=== PATIENT | female | born 1980 | race Caucasian/White ===

== ENCOUNTER 2019-05-04 19:05 | Emergency (ER) | payer BC, OTHER ==
[2019-05-04 20:12] VITALS: BP 112/71
[2019-05-04 20:32] LABS: Influenza A Molecular POSITIVE (Negative)
--- NOTE | 2019-05-04 20:38 | UC ---
FLU HPI - HPI Summary HPI Summary: Patient is a 39-year-old female presents to urgent care with 3-4 days of body aches, cough, sinus congestion, ear fullness. Patient states sometimes with coughing she gags and vomits. Mild nausea. No documented fever. No rash. No diarrhea. Patient did not get the flu vaccine this year she is highly allergic to it. Patient does smoke cigarettes. Patient denies feeling short of breath. Patient's was diagnosed with influenza today. Patient's medications is entered in the EMR reviewed this visit. Patient to take 2 days of amoxicillin she had left over thinking this could be a sinus infection. Patient has taken several [id number] medications to help with cough but none seem to help. Pt does have a history of Crohn's disease - History of Current Complaint Chief Complaint: UCRespiratory Stated Complaint: FLU LIKE SYMPTOMS Time Seen by Provider: 05/04/19 20:29 Hx Obtained From: Patient Hx Last Menstrual Period: 04/19/19 Onset/Duration: Gradual Onset Severity Currently: Moderate Severity Initially: Moderate Pain Intensity: 7 - Allergy/Home Medications Allergies/Adverse Reactions: Allergies Allergy/AdvReac Type Severity Reaction Status Date / Time BEES Allergy Severe Anaphylatic Uncoded 05/04/19 20:15 Shock novacain Allergy Severe Anaphylatic Uncoded 05/04/19 20:15 Shock HAYFEVER Allergy ITCHY Uncoded 05/04/19 20:15 EYES, RUNNY NOSE Home Medications: Home Medications Hyoscyamine Sulfate [Levsin] 0.125 mg PO TID 06/08/14 [History Confirmed ] Omeprazole CAP (NF) [PriLOSEC CAP*] 20 mg PO BID 06/08/14 [History Confirmed ] Ondansetron TAB* [Zofran Tab*] 4 mg PO Q6H PRN 06/08/14 [History Confirmed 05/04] Cholecalciferol [Vitamin D3] 10,000 unit PO QAM 08/10/14 [History Confirmed ] EPINEPHrine [Epipen 2-Brayden] 0.3 mg INJ DAILY PRN 08/10/14 [History Confirmed ] Multivitamin [Multivitamins] 1 cap PO QAM 08/10/14 [History Confirmed 05/04/19] Vitamin B Complex CAP* [B Complex CAP*] 1 cap PO QAM 08/10/14 [History Confirmed 05/04/19] Benzonatate CAP* [Tessalon 100 MG CAP*] 100 mg PO TID PRN #15 cap 05/04/19 [Rx] Oseltamivir Phosphate [Tamiflu] 75 mg PO BID #9 capsule 05/04/19 [Rx] PMH/Surg Hx/FS Hx/Imm Hx Previously Healthy: Yes - Surgical History Surgical History: Yes Surgery Procedure, Year, and Place: 07/23/2000 WITH REPAIR OF UTERUS FROM LARGE BABY THAT WAS BREECH, AND BILATERAL TUBAL LIGATION, [place] [facility]. APPENDECTOMY 1998. [facility]. 2001 ABDOMINAL HERNIA REPAIR WITH MESH with revisions,NASREEN PELAEZ. MULTIPLE HERNIA REPAIRS WITH MESH APPLIED,. 2007 LAPAROSCOPIC CHOLECYSTECTOMY, [place]. 2008 UMBILICAL HERNIA REPAIR WITH KEGAL MESH, [place]. 01/2013 ENDOSCOPY/COLONOSCOPY, [facility]. 2013 ANAL FISTUALOTOMY, [place]. 08/16/14 abdominal mesh removal [facility] [place] debridement & abdominal mesh removal [facility] [place]. 12/26/14 abdominal wound repair [facility]. 11/21/15 hernia repair x4, 3in of small intestine removed, & new mesh applied [facility] - Family History Known Family History: Positive: Non-Contributory Negative: Respiratory Disease - Social History Occupation: Employed Full-time Lives: With Family Alcohol Use: Rare Substance Use Type: None Smoking Status (MU): Light Every Day Tobacco Smoker Type: Cigarettes Amount Used/How Often: 1/2 ppd Length of Time of Smoking/Using Tobacco: 15 yrs Have You Smoked in the Last Year: Yes When Did the Patient Quit Smoking/Using Tobacco: NONE SINCE Wed08/08/2014 Household Exposure Type: Cigarettes - Immunization History Most Recent Influenza Vaccination: NONE Most Recent Tetanus Shot: 2000 Most Recent Pneumonia Vaccination: NONE Review of Systems All Other Systems Reviewed And Are Negative: Yes Constitutional: Positive: Fatigue ENT: Positive: Sore Throat, Ear Ache, Nasal Discharge, Sinus Congestion, Sinus Pain/Tenderness Respiratory: Positive: Cough Cardiovascular: Positive: Negative Gastrointestinal: Positive: Vomiting - Posttussive, Nausea Physical Exam - Summary Physical Exam Summary: Vital Signs Reviewed: Yes A+Ox3, congested, tired Eyes: Conjunctiva Clear, CRYSTAL. EOM intact and full ENT: Hearing grossly normal TM x 2 clear, turbinates inflammed and boggy, + PND , mmoist, uvula midline, no exudate, no erythema Neck: Positive: Supple Respiratory: Positive: No respiratory distress, No accessory muscle use + mild exp wheeze, + cough speaking full,easy sentences Cardiovascular: RRR nl s1, s2 no m/r CBT <2 sec abd soft + BS nt/nd no guarding, no distension Musculoskeletal Exam: [place] x 4 without difficulty Strength Intact, ROM Intact Neurological: Positive: Alert, + sensation throughout Psychological: Positive: Normal Response To examiner Skin: Positive: no rash, no ecchymosis Vital Signs: Initial Vital Signs Temp 98.9 F 05/04/19 20:03 Pulse 95 05/04/19 20:03 Resp 18 05/04/19 20:03 BP 112/71 05/04/19 20:03 Pulse Ox 100 05/04/19 20:03 Flu Course/Dx - Course Course Of Treatment: Patient presents to urgent care reporting 3-4 days of progressive bodyaches, congestion, sore throat, cough. Patient has had posttussive emesis. On exam vital signs are stable. Patient does have sinus congestion postnasal drip and mild primary wheezing. Patient's influenza is positive. Given patient's diagnosis of Crohn's disease will start patient on Tamiflu. Recommend humidified air. Secretion precaution. We'll prescribe Tessalon Perles this patient states this has helped her past. Patient comfortable in agreement with plan. Return percussion discussed. Secretion precautions discussed. - Differential Dx/Diagnosis Provider Diagnosis: Influenza A Discharge ED - Sign-Out/Discharge Documenting (check all that apply): Patient Departure All imaging exams completed and their final reports reviewed: No Studies - Discharge Plan Condition: Stable Disposition: HOME Prescriptions: Benzonatate CAP* [Tessalon 100 MG CAP*] 100 mg PO TID PRN #15 cap PRN Reason: Cough Oseltamivir Phosphate [Tamiflu] 75 mg PO BID #9 capsule Patient Education Materials: Influenza (DC) Forms: *Work Release Referrals: Khanh LIND,Katherine Hoover [Primary Care Provider] - Additional Instructions: - Stay well hydrated. Drink plenty of non-alcoholic, non-caffinated beverages. - Take Tamiflu as prescribed - Alternate ibuprofen (Advil, Motrin) 600mg and Tylenol 1000mg every 3 hours for pain or fever. Take with food. Do NOT take for more than 4-5 days. - These infections are spread by secretions - do NOT share eating or drinking utensils - clean items you share with other people such as cell phones, computer mouse, TV remote, computer tablets,etc. Once you start to feel better, change your toothbrush and your pillowcase. - humidify the air in the room where you sleep - boil water, run a hot steam shower, vaporizer, cups of water by heat register - okay to take over the counter decongestant and cough medication - okay to take Tessalon Pearls - medications as prescribed for coughing - get plenty of restful sleep. - contact your doctor or return with questions or concerns - Billing Disposition and Condition Condition: STABLE Disposition: Home
[2019-05-04] MEDS ORDERED: Oseltamivir CAP* 75 MG CAP PO ONE (20:49)
[2019-05-04] MEDS ORDERED: Benzonatate CAP* 100 MG PO ONE (20:53)
== END 2019-05-04 21:18 | disposition home or self-care (01) ==
LOC: UCCORT 19:05
DX: J10.1 Influenza due to other identified influenza virus with other respiratory manifestations (principal); F17.210 Nicotine dependence, cigarettes, uncomplicated; Z91.030 Bee allergy status; Z91.09 Other allergy status, other than to drugs and biological substances; Z88.8 Allergy status to other drugs, medicaments and biological substances
CPT/HCPCS: 99213; A9270-GY; G0463